=== PATIENT | female | born 1995 ===

== ENCOUNTER 2022-01-22 14:43 | Outpatient (CLI) | payer OTHER | END 2022-01-22 16:30 | disposition home or self-care (01) | LOC: PRENATAL 14:43 | PROVIDERS: ATTEND Obstetrics & Gynecology Maternal & Fetal Medicine | DX: O36.80X0 Pregnancy with inconclusive fetal viability, not applicable or unspecified (principal); O34.80 Maternal care for other abnormalities of pelvic organs, unspecified trimester; Z3A.11 11 weeks gestation of pregnancy ==

== ENCOUNTER 2022-03-17 10:45 | Inpatient (IN) | payer OTHER ==
[~2022-03-17] VITALS: Ht 162.6 cm; Wt 70.8 kg
[2022-03-17] MEDS ORDERED: FOLIC A PO (13:39)
[2022-03-17] MEDS ORDERED: VITAMIN C PO (13:39)
[2022-03-17] MEDS ORDERED: PRENAT PO (13:39)
[2022-03-19] MEDS ORDERED: VITAMIN C100 MG (08:55)
[2022-03-19] MEDS ORDERED: PRENATAL + DHA1 EAC1 (08:55)
[2022-03-19] MEDS ORDERED: FOLIC ACID0.8 M1 (08:55)
== END 2022-03-21 13:49 | disposition home or self-care (01) | DRG 819 ==
LOC: OB/GYN 03-19 06:50 → O/R 03-19 06:50 → SURH 03-19 10:45 → OB/GYN 03-19 11:08 → SURH 03-19 23:15 → OB/GYN 03-21 13:49
PROVIDERS: ADMIT Obstetrics & Gynecology Gynecologic Oncology; ATTEND Obstetrics & Gynecology Gynecologic Oncology
PROC: 0DBW0ZZ Excision of Peritoneum, Open Approach (ICD-10-PCS; 2022-03-19)
PROC: 0WBH0ZZ Excision of Retroperitoneum, Open Approach (ICD-10-PCS; 2022-03-19)
PROC: 0DBW0ZX Excision of Peritoneum, Open Approach, Diagnostic (ICD-10-PCS; 2022-03-19)
PROC: 3E1M38Z Irrigation of Peritoneal Cavity using Irrigating Substance, Percutaneous Approach (ICD-10-PCS; 2022-03-19)
PROC: 4A1HXCZ Monitoring of Products of Conception, Cardiac Rate, External Approach (ICD-10-PCS; 2022-03-19)
PROC: 0DBU0ZZ Excision of Omentum, Open Approach (ICD-10-PCS; principal; 2022-03-19 23:15)
DX: O34.82 Maternal care for other abnormalities of pelvic organs, second trimester (principal); D27.1 Benign neoplasm of left ovary; Z3A.19 19 weeks gestation of pregnancy; Z20.822 Contact with and (suspected) exposure to COVID-19

== ENCOUNTER 2022-03-31 08:25 | Outpatient (CLI) | payer OTHER ==
[~2022-03-31 08:25] MED LIST: FOLIC A PO; FOLIC ACID0.8 M1; PRENAT PO; PRENATAL + DHA1 EAC1; VITAMIN C PO; VITAMIN C100 MG
== END 2022-03-31 09:45 | disposition home or self-care (01) ==
LOC: PRENATAL 08:25
PROVIDERS: ATTEND Obstetrics & Gynecology Maternal & Fetal Medicine
DX: O35.9XX0 Maternal care for (suspected) fetal abnormality and damage, unspecified, not applicable or unspecified (principal); O35.3XX0 Maternal care for (suspected) damage to fetus from viral disease in mother, not applicable or unspecified; O34.80 Maternal care for other abnormalities of pelvic organs, unspecified trimester; Z3A.20 20 weeks gestation of pregnancy

== ENCOUNTER 2022-05-26 09:04 | Outpatient (CLI) | payer OTHER | END 2022-05-26 10:22 | disposition home or self-care (01) | LOC: PRENATAL 09:04 | PROVIDERS: ATTEND Obstetrics & Gynecology Maternal & Fetal Medicine | DX: O26.849 Uterine size-date discrepancy, unspecified trimester (principal); Z3A.28 28 weeks gestation of pregnancy ==

== ENCOUNTER 2022-07-07 09:55 | Outpatient (CLI) | payer OTHER | END 2022-07-07 11:17 | disposition home or self-care (01) | LOC: PRENATAL 09:55 | PROVIDERS: ATTEND Obstetrics & Gynecology Maternal & Fetal Medicine | DX: O26.849 Uterine size-date discrepancy, unspecified trimester (principal); O36.8199 Decreased fetal movements, unspecified trimester, other fetus; O35.9XX0 Maternal care for (suspected) fetal abnormality and damage, unspecified, not applicable or unspecified; Z3A.34 34 weeks gestation of pregnancy ==